=== PATIENT | male | born 2000 | race Caucasian/White ===

== ENCOUNTER 2024-02-12 15:36 | Outpatient (AMB) | payer BC, SELFPAY ==
--- NOTE | 2024-02-12 15:49 | A.OFFPC_ITS ---
Vital Signs 02/12/24 15:53 Height 5 ft 10 in Weight 167 lb 6 oz BMI 24.0 BP 117/66 Blood Pressure Location Rt brachial Position Sitting Respiration 16 Pulse 66 Pulse Source Pulse Oximeter Temp 98.4 F Temp Source Oral Pulse Oximetry (%) 97 Oxygen Delivery Method Room Air Intake Visit Reasons: Medications follow up Intake Note: asthma follow up Allergies No Known Allergies [No Known Allergies*] Allergy (Verified 02/12/24 15:52) Medication List - Last Reconciled 02/12/24 by Jordon Miles MD albuterol sulfate 90 mcg/actuation 2 puffs inhalation Q4-6H PRN 30 days fluticasone propion-salmeterol 250-50 mcg/dose (Advair Diskus) 1 inh inhalation Q12H 30 days Tobacco use date assessed: 12/27/21 HPI Medications follow up HPI Details 23 y/o male presents to f/u meds, chroni c conditions. Requesting refills for his asthma meds. [facility] Social History Housing: House Patient Tobacco Use Status: Never used Tobacco Current occupational status: employed Questionnaire PHQ-9 Over the last 2 weeks, how often have you been bothered by any of the following problems? 1. Little interest or pleasure in doing things: several days 2. Feeling down, depressed, or hopeless: several days 3. Trouble falling or staying asleep, or sleeping too much: several days 4. Feeling tired or having little energy: several days 5. Poor appetite or overeating: several days 6. Feeling bad about yourself - or that you are a failure or have let yourself or your family down: several days 7. Trouble concentrating on things, such as reading the newspaper or watching television: not at all 8. Moving or speaking so slowly that other people could have noticed. Or the opposite - being so fidgety or restless that you have been moving around a lot more than usual: not at all 9. Thoughts that you would be better off or of hurting yourself in some way: not at all Total score: 6 Source: Developed by Drs. Bennett Romero, Floridalma Hastings, Darshan Lang and colleagues, with an educational lenore from [employer]. Thrive Questionnaire I am a: Patient What is your living situation today?: I have a steady place to live Within the past 12 months, did the food you bought not last and you didn't have the money to get more?: Never true Within the past 12 months, did you worry whether your food would run out before you got money to buy more?: Never true Do you have trouble paying for medicines?: No Do you have trouble getting transportation to medical appointments?: No Do you have trouble paying your heating and electricity bill?: No Do you have trouble taking care of your child, family member or friend?: No Do you have trouble with day-to-day activities such as bathing, preparing meals, shopping, managing finances, etc.?: No Are you currently unemployed and looking for a job?: No Are you interested in more education?: Yes Please select the resources that you would like help with: None Currently or been in a relationship where the following occur: No concerns reported THRIVE Score: 0 AUDIT C Alcohol Use Questionnaire (AUDIT-C) 1. How often do you have a drink containing alcohol?: 2-3 times a week 2. How many drinks containing alcohol do you have on a typical day when you are drinking?: 3 or 4 3. How often do you have six or more drinks on one occasion?: Monthly Total Score: 6 ERNESTO-7 AMB Questionnaire ERNESTO-7 Feeling nervous, anxious, or on edge: 1 = Several days Not being able to stop or control worryin = Several days Worrying too much about different things: 1 = Several days Trouble relaxin = Several days Being so restless that it is hard to sit still: 0 = Not at all Becoming easily annoyed or irritable: 1 = Several days Feeling afraid as if something awful might happen: 1 = Several days Total ERNESTO-7 score (0-4 normal; 5-9 mild; 10-14 moderate; 15-21 severe): 6 Source: Developed by Drs. Bennett Romero, Floridalma Hastings, Darshan Lang and colleagues, with an educational lenore from [employer]. ACT Questionnaire In the past 4 weeks, how much of the time did your asthma keep you from getting as much done at work, school or at home?: None of the time During the past 4 weeks, how often have you had shortness of breath?: 1-2 times a week During the past 4 weeks, how often did your asthma symptoms wake you up at night or earlier than usual in the morning?: Not at all During the past 4 weeks, how often have you had to use your rescue inhaler or nebulizer medication?: 2-3 times a week How would you rate your asthma control during the past 4 weeks?: Somewhat controlled ACT Interpretation: Positive Score: 20 Review of Systems Const Denies chills, Denies fatigue, Denies fever(s), Denies headache(s) and Denies weakness ENT Denies dizziness and Denies headache(s) Card Denies dyspnea Resp Denies cough, Denies dyspnea, Denies wheezing and Denies other (shortness of breath) Musc Denies numbness and Denies tingling Neuro Denies dizziness, Denies headache(s), Denies numbness, Denies tingling and Denies weakness Psych Denies anxiety and Denies depression Endo Denies fatigue Aller/Immun Denies wheezing Physical exam (Primary Care) Vital Signs: Last Vital Signs Temp 98.4 F 02/12/24 15:53 Pulse 66 02/12/24 15:53 Resp 16 02/12/24 15:53 BP 117/66 02/12/24 15:53 Pulse Ox 97 02/12/24 15:53 Oxygen Delivery Method Room Air 02/12/24 15:53 BMI result Body Mass Index 24.0 Tobacco/Smoking Status: Tobacco use Status Tobacco use date assessed 12/27/21 02/12/24 15:57 Patient Tobacco Use Status Never used Tobacco 02/12/24 15:57 PHQ-9: PHQ-9 Score PHQ-9: Total score 6 02/12/24 15:57 Currently or been in a relationship where the following occur: No concerns reported Const General: well developed; No acute distress Nutritional Appearance: well nourished Orientation/consciousness: [facility]: Yes normocephalic and Yes atraumatic Eyes General: appearance normal, both eyes and all related structures Pupils: Equal, round and reactive pupils present EOM: EOMs intact bilaterally Resp Effort & Inspection: normal respiratory effort Auscultation: clear to auscultation bilaterally Cardio Rate: regular rate Rhythm: regular rhythm Heart sounds: S1 normal heart sound present, S2 normal heart sound present, no gallops, no murmurs and no rubs Neuro General: patient oriented x3 and gait normal Cranial nerves: Yes Equal, round and reactive pupils present Psych Affect: normal affect Coding Level of Care Code Est Pt Level 3 (55605) Diagnoses Asthma J45.909 Additional Codes Asthma Control Questionnaire - ACT Interpretation: Positive ([id number]) Assessment & Plan Assessment & Plan (1) Asthma: Code(s): J45.909 - Unspecified asthma, uncomplicated Category: Medical Plan: Well?controlled?when?patient?has?his?medications. Lungs?are?clear Refilled?meds Continue?current?medication?regimen Orders: Orders TSH reflex Free T4 Today Z00.00 - Encounter for general adult medical examination without abnormal findings Comprehensive Midnight. Panel Fast Today Z00.00 - Encounter for general adult medical examination without abnormal findings Lipid Panel Today Z00.00 - Encounter for general adult medical examination without abnormal findings Microalbumin, Random (w Creat) Today I10 - Essential (primary) hypertension UA and rflx microscopic Today Z00.00 - Encounter for general adult medical examination without abnormal findings Medications: New fluticasone propion-salmeterol 500-50 mcg/dose (Wixela Inhub) 1 inh inhalation Q12H 30 days 60 ea 4RF fluticasone propion-salmeterol 250-50 mcg/dose (Wixela Inhub) 1 inh inhalation Q12H 30 days 60 ea 4RF Refilled albuterol sulfate 90 mcg/actuation 2 puffs inhalation Q4-6H 30 days PRN 8.5 grams 4RF shortness of breath or wheezing Discontinued fluticasone propion-salmeterol 250-50 mcg/dose (Advair Diskus) Discontinued Reason: Doctor's Order 1 inh inhalation Q12H 30 days 60 ea 0RF
[2024-02-12 15:53] VITALS: BP 117/66; PULSE 66; RESP 16; TEMP 36.9; O2SAT 97; BMI 24.0
== END 2024-02-12 16:21 | disposition home or self-care (01) ==
PROVIDERS: PCP Family Medicine; Visit Provider Family Medicine
DX: J45.909 Unspecified asthma, uncomplicated (principal)

== ENCOUNTER → 2024-02-12 15:36 | Outpatient (BNVA) | payer BC, SELFPAY | PROVIDERS: PCP Family Medicine; Visit Provider Family Medicine | DX: J45.909 Unspecified asthma, uncomplicated (principal) | CPT/HCPCS: 96127; 96160 ==

== ENCOUNTER 2024-03-12 12:52 | Outpatient (REF) | payer BC, SELFPAY ==
--- OUTSIDE RECORDS SUMMARY | 2024-03-12 14:30 | XMS_ITS | Clinical Summary ---
Author Organization [facility] Address [address] [place] [address] Phone Care Team Providers Care Charge Accounts Audit Clerk Name Role Phone Unavailable Primary Care Provider Unavailabl e Allergies No known active allergies Medications albuterol HFA 108 (90 BASE) MCG/ACT inhalerIndication s:Moderate persistent asthma with acute exacerbation Inhale 4 puffs every 4 (four) hours as needed for wheezing or shortness of breath. 1 Units 1 7 Active Spacer/Aero-Holdi ng Chambers (OPTICHAMBER ADVANTAGE) miscIndications:M oderate persistent asthma without complication Use with inhaler 1 each 1 7 Active TRETINOIN 0.05 % creamIndications: Acne, unspecified acne type APPLY TOPICALLY TO THE AFFECTED AREA ONCE DAILY 20 g 6 8 Active cefuroxime 250 MG tablet 0 8 Active clindamycin-benzo yl peroxide 1-5% gel 0 8 Active Advair Diskus 100-50 MCG/DOSE diskus inhalerIndication s:Moderate persistent asthma without complication INHALE 1 PUFF BY MOUTH TWICE DAILY. RINSE MOUTH AFTER USE 1 Units 0 Active Active Problems Problem Noted Date Diagnosed Date Moderate persistent asthma with acute exacerbati on 10/29/2016 Overview (10/29/2016): Hospitalized in PICU at age 5 Takes Advair Disc BID Acne vulgaris 10/11/2016 Immunizations Name Administration Dates Next Due DTaP 5 02/27/2003, 1,1999,07/19,1999 HPV Vaccine 9 Valent 09/16/2014 HPV, Quadrivalent 03/19/2014,08/27/2013 Hep A, ped/adol 08/27/2013,08/12/2010 Hep B, ped/adol 1999,1999,1999 Hib (PRP-T) 06/20/2000, 0,1999,05/11 IPV 02/27/2003, 0,1999,05/11 Influenza, injectable, quadrivalent 03/19/2014 Influenza, injectable, quadr ivalent, preservative free 10/13/2015 Influenza, injectable, trivalent 01/15/2008,11/21 Influenza, intranasal, trivalent 03/05/2012 MMR 02/27/2003,03/21/2000 Meningococcal Conj (Menactra) MCV4P 10/11/2016,0 08/05/2011 Pneumococcal Conjugate 06/20/2000,03/21/2000, Tdap 08/05/2011 Varicella 03/05/2008,03/21/2000 Family History Relation Name Status Comments Mother Joseline Alive Other Family history of Obesity, Family history of Asthma, Family history of *CVA/Stroke, Family history of Sudden /[place] under 55, Family history of *Heart Disease, Family history of Diabetes mellitus, Family history of Developmental dislocation of hip, Family history of *Dental caries Sister Deepa Alive Social History Tobacco Use Types Packs/Day Years Used Date Smoking Tobacco: Never Smokeless Tobacco: Never Alcohol Use Standard Drinks/Week Comments Yes 3 (1 standard drink = 0.6 oz pur e alcohol) Sex and Gender Information Value Date Recorded Sex Assigned at Not on file Legal Sex Male 4:57 PM EDT Gender Identity Not on file Sexual Orientation Not on file Last Filed Vital Signs Vital Sign Reading Time Taken Comments Blood Pressure 109/75 08/30/2017 3:10 PM EDT Pulse 58 08/30/2017 3:10 PM EDT Temperature 36.8 ??C (98.2 ??F) 10/29/2016 10:44 AM E DT Respiratory Rate - - Oxygen Saturation 99% 10/29/2016 10:44 AM EDT pr Inhaled Oxygen Concentration - - Weight 72.8 kg (160 lb 6.4 oz) 08/30/2017 3:10 P M EDT Height 177.2 cm (5' 9.75 ) 08/30/2017 3:10 PM ED T Body Mass Index 23.18 08/30/2017 3:10 PM EDT Plan of Treatment Health Maintenance Due Date Last Done Comments Consider Men B Vaccine (1 of 2 - Bexsero 2-dose series) 2015 Influenza Vaccines (#1) 2023 10/13/19 16, 03/19/2014, 03/05/2012, Additional history exists COVID-19 Vaccine ( season) 2023 06/13/2020, 05/16/2020 DTaP,Tdap,and Td Vaccines (8 - Td or Tdap) 11/07/2027 11/06/2017, 08/05/2011, 02/27/2003, Additional history exists Hepatitis B Vaccines Completed 1999, 1999, 1999 HIB Vaccines Completed 06/20/2000, 08/20, 1999, Additional history exists Pneumococcal Vaccine Completed 06/20/2000, 03/21/2000, 1999 IPV Vaccines Completed 02/27/2003, 08/20, 1999, Additional history exists MMR Vaccines Completed 02/27/2003, 03/21/2000 Varicella Vaccines Completed 03/05/2008, 03/21/2000 Hepatitis A Vaccines Completed 08/27/2013, 08/13/19 11 HPV Vaccines Completed 09/16/2014, 02/21, 08/27/2013 Meningococcal Vaccine Completed 10/11/2016, 012 Men B Vaccine Aged Out No longer randall moore based on patient's age to complete this topic
--- OUTSIDE RECORDS SUMMARY | 2024-03-12 14:30 | XMS_ITS | Encounter Summary ---
Author Organization [facility] Address [address] [place] [address] Phone Care Team Providers Care Language Path Name Role Phone Provider, Nithya SAHA Primary Care Provider [phone] Reason for Visit * Reason Comments Med Refill Encounter Details Date Type Department Care Team (Late st Contact Info) Description 10/31/2019 Refill [facility] [place] [address] [place] [address] Hannah Renteria MD [address] [place] [address] Moderate persistent asthma without complication Social History Tobacco Use Types Packs/Day Years Used Date Smoking Tobacco: Never Smokeless Tobacco: Never Alcohol Use Standard Drinks/Week Comments Yes 3 (1 standard drink = 0.6 oz pur e alcohol) Sex and Gender Information Value Date Recorded Sex Assigned at Not on file Legal Sex Male 4:57 PM EDT Gender Identity Not on file Sexual Orientation Not on file documented as of this encounter Miscellaneous Notes * Telephone Encounter - Hannah Renteria MD - 10/31/2019 5:40 PM EDT Needs well visit scheduled. * Telephone Encounter - Citlaly Atwood LPN - 10/31/2019 7:56 AM EDT Refill request for Advair Diskus/JOD documented in this encounter Plan of Treatment Not on file documented as of this encounter Visit Diagnoses Diagnosis Moderate persistent asthma without complication documented in this encounter Care Teams Language Path Relationship Specialty Start Date End Date Provider, MD Nithya [address] [place] [address] PCP - General Pediatrics 10/01/20 05/30/22 documented as of this encounter
--- OUTSIDE RECORDS SUMMARY | 2024-03-12 14:30 | XMS_ITS | Encounter Summary ---
Author Organization [facility] Address [address] [place] [address] Phone Care Team Providers Care Hot Roller Name Role Phone ProviderNithya MD Primary Care Provider [phone] Encounter Details Date Type Department Care Team (Late st Contact Info) Description 08/11/2015 Documentation [facility] [place] [address] [place] [address] Family Medicine, Physician [address] [place] [address] Social History Tobacco Use Types Packs/Day Years Used Date Smoking Tobacco: Never Assessed Sex and Gender Information Value Date Recorded Sex Assigned at Not on file Legal Sex Male 4:57 PM EDT Gender Identity Not on file Sexual Orientation Not on file documented as of this encounter Plan of Treatment Not on file documented as of this encounter Visit Diagnoses Not on filedocumented in this encounter Care Teams Hot Roller Relationship Specialty Start Date End Date Provider, MD Nithya [address] [place] [address] PCP - General Pediatrics 10/01/20 05/30/22 documented as of this encounter
--- OUTSIDE RECORDS SUMMARY | 2024-03-12 14:30 | XMS_ITS | Encounter Summary ---
Author Organization [facility] Address [address] [place] [address] Phone Care Team Providers Care Process Safety Manager Name Role Phone ProviderNithya MD Primary Care Provider [phone] Encounter Details Date Type Department Care Team (Late st Contact Info) Description 04/25/2016 Documentation [facility] [place] [address] [place] [address] Family Medicine, Physician [address] [place] [address] Social History Tobacco Use Types [...] on filedocumented in this encounter Care Teams Process Safety Manager Relationship Specialty Start Date End Date Provider, MD Nithya [address] [place] [address] PCP - General Pediatrics 10/01/20 05/30/22 documented as of this encounter
--- OUTSIDE RECORDS SUMMARY | 2024-03-12 14:30 | XMS_ITS | Encounter Summary ---
Author Organization [facility] Address [address] [place] [address] Phone Care Team Providers Care Director Of Annual Giving Name Role Phone ProviderNithya MD Primary Care Provider [phone] Encounter Details Date Type Department Care Team (Late st Contact Info) Description 04/01/2013 Documentation [facility] [place] [address] [place] [address] Family Medicine, Physician [address] [place] [address] Social History Tobacco Use Types [...] on filedocumented in this encounter Care Teams Director Of Annual Giving Relationship Specialty Start Date End Date Provider, MD Nithya [address] [place] [address] PCP - General Pediatrics 10/01/20 05/30/22 documented as of this encounter
--- OUTSIDE RECORDS SUMMARY | 2024-03-12 14:30 | XMS_ITS | Encounter Summary ---
Author Organization [facility] Address [address] [place] [address] Phone Care Team Providers Care Welder Boilermaker Name Role Phone Provider, Nithya SAHA Primary Care Provider [phone] Encounter Details Date Type Department Care Team (Late st Contact Info) Description 10/06/2016 Conversion Encounter [facility] [place] [address] [place] [address] Social History Tobacco Use Types Packs/Day Years [...] on filedocumented in this encounter Care Teams Welder Boilermaker Relationship Specialty Start Date End Date Provider, MD Nithya [address] [place] [id number] PCP - General Pediatrics 10/01/20 05/30/22 documented as of this encounter
--- OUTSIDE RECORDS SUMMARY | 2024-03-12 14:31 | XMS_ITS | Encounter Summary ---
Author Organization [facility] Address [address] [place] [address] Phone Care Team Providers Care Sugar Drier Name Role Phone ProviderNithya MD Primary Care Provider Encounter Details Date Type Department Care Team (Late st Contact Info) Description 05/06/2009 Documentation [facility] [place] [address] [place] [address] Family Medicine, Physician [address] [place] [address] Social History Tobacco Use Types [...] on filedocumented in this encounter Care Teams Sugar Drier Relationship Specialty Start Date End Date Provider, MD Nithya [address] [place] [address] PCP - General Pediatrics 10/01/20 05/30/22 documented as of this encounter
--- OUTSIDE RECORDS SUMMARY | 2024-03-12 14:31 | XMS_ITS | Encounter Summary ---
Author Organization [facility] Address [address] [place] [address] Phone Care Team Providers Care Physician Interventional Cardiologist Name Role Phone ProviderNithya MD Primary Care Provider [phone] Encounter Details Date Type Department Care Team (Late st Contact Info) Description 05/06/2009 Documentation [facility] [place] [address] [place] [address] Family Medicine, Physician [address] [place] [address] Social History Tobacco Use Types [...] on filedocumented in this encounter Care Teams Physician Interventional Cardiologist Relationship Specialty Start Date End Date Provider, MD Nithya [address] [place] [address] PCP - General Pediatrics 10/01/20 05/30/22 documented as of this encounter
--- OUTSIDE RECORDS SUMMARY | 2024-03-12 14:31 | XMS_ITS | Encounter Summary ---
Author Organization [facility] Address [address] [place] [address] Phone Care Team Providers Care Director Product Development Name Role Phone ProviderNithya MD Primary Care Provider [phone] Encounter Details Date Type Department Care Team (Late st Contact Info) Description 01/30/2013 Documentation [facility] [place] [address] [place] [address] Family Medicine, Physician [address] [place] [address] Social History Tobacco Use Types [...] filedocumented in this encounter Care Teams Director Product Development Relationship Specialty Start Date End Date Provider, MD Nithya [address] [place] [address] PCP - General Pediatrics 10/01/20 05/30/22 documented as of this encounter
--- OUTSIDE RECORDS SUMMARY | 2024-03-12 14:31 | XMS_ITS | Encounter Summary ---
Author Organization [facility] Address [address] [place] [address] Phone Care Team Providers Care Linen Room Worker Name Role Phone ProviderNithya MD Primary Care Provider [phone] Encounter Details Date Type Department Care Team (Late st Contact Info) Description 09/08/2009 [place]ation [facility] [place] [address] [place] [address] Family Medicine, Physician [address] [place] [address] Social History Tobacco Use Types [...] on filedocumented in this encounter Care Teams Linen Room Worker Relationship Specialty Start Date End Date Provider, MD Nithya [address] [place] [address] PCP - General Pediatrics 10/01/20 05/30/22 documented as of this encounter
--- OUTSIDE RECORDS SUMMARY | 2024-03-12 14:31 | XMS_ITS | Encounter Summary ---
Author Organization [facility] Address [address] [place] [address] Phone Care Team Providers Care Director Of Logistics Name Role Phone ProviderNithya MD Primary Care Provider [phone] Encounter Details Date Type Department Care Team (Late st Contact Info) Description 10/03/2012 Documentation [facility] [place] [address] [place] [address] Family Medicine, Physician [address] [place] [address] Social History Tobacco Use Types [...] in this encounter Care Teams Director Of Logistics Relationship Specialty Start Date End Date Provider, MD Nithya [address] [place] [address] PCP - General Pediatrics 10/01/20 05/30/22 documented as of this encounter
--- OUTSIDE RECORDS SUMMARY | 2024-03-12 14:31 | XMS_ITS | Encounter Summary ---
Author Organization [facility] Address [address] [place] [address] Phone Care Team Providers Care Furniture And Bedding Inspector Name Role Phone ProviderNithya MD Primary Care Provider [phone] Encounter Details Date Type Department Care Team (Late st Contact Info) Description 05/06/2009 Documentation [facility] [place] [address] [place] [address] Family Medicine, Physician [address] [place] [address] Social History Tobacco Use Types [...] on filedocumented in this encounter Care Teams Furniture And Bedding Inspector Relationship Specialty Start Date End Date Provider, MD Nithya [address] [place] [address] PCP - General Pediatrics 10/01/20 05/30/22 documented as of this encounter
--- OUTSIDE RECORDS SUMMARY | 2024-03-12 14:31 | XMS_ITS | Encounter Summary ---
Author Organization [facility] Address [address] [place] [address] Phone Care Team Providers Care Secondary Connector Armature Name Role Phone ProviderNithya MD Primary Care Provider [phone] Encounter Details Date Type Department Care Team (Late st Contact Info) Description 03/26/2013 Documentation [facility] [place] [address] [place] [address] Family Medicine, Physician [address] [place] [address] Social History Tobacco Use Types [...] on filedocumented in this encounter Care Teams Secondary Connector Armature Relationship Specialty Start Date End Date Provider, MD Nithya [address] [place] [address] PCP - General Pediatrics 10/01/20 05/30/22 documented as of this encounter
[2024-03-12 14:43] LABS: Appearance Urine Clear; Color Urine Yellow; Glucose Urine UA Negative (Negative); Leukocyte Esterase Urine Negative (Negative); Nitrite Urine Negative (Negative); PH 7.5 (5.0-9.0); Urine Blood Negative (Negative); Urine Ketones Negative (Negative); Urine Protein Negative (Neg-Trace)
[2024-03-12 15:14] LABS: Alanine Aminotransferase 17 U/L (0-40); Albumin Level 4.5 g/dL (3.5-5.0); Alkaline Phosphatase 55 U/L (39-117); Anion Gap 9 (12-20); Aspartate Amino Transferase 22 U/L (5-37); Bilirubin Total 0.6 mg/dL (0.0-1.0); Blood Urea Nitrogen 10 mg/dL (9-16); Calcium 9.1 mg/dL (8.4-10.2); Carbon Dioxide 29 mmol/L (22-29); Chloride 107 mmol/L (96-108); Cholesterol 146 mg/dL (<200); Estimated Glomerular Filt Rate > 60; Glucose Fasting 92 mg/dL (60-99); HDL Cholesterol 63 mg/dL (>40); LDL Cholesterol Calculated 74 mg/dL (<100); Potassium 4.1 mmol/L (3.3-5.1); Sodium 141 mmol/L (135-145); Total Protein 7.5 g/dL (6.5-8.0); Triglycerides 46 mg/dL (<150)
[2024-03-12 15:26] LABS: Creatinine Urine 140.49 mg/dL; Microalbum/Creatinine Ratio Ur 4.2 ug/mg cr (<30)
[2024-03-12 15:30] LABS: TSH reflex Free T4 1.15 uIU/mL (0.32-4.0)
== END 2024-03-12 12:53 | disposition home or self-care (01) ==
LOC: HO.WFDLDS 12:52
PROVIDERS: Visit Provider Family Medicine
DX: Z00.00 Encounter for general adult medical examination without abnormal findings (principal); I10 Essential (primary) hypertension
CPT/HCPCS: 36415; 80053; 80061; 81003; 82043; 82570; 84443

== ENCOUNTER → 2024-03-19 14:25 | Outpatient (BNVA) | payer BC, SELFPAY | PROVIDERS: PCP Family Medicine; Visit Provider Family Medicine ==

== ENCOUNTER 2024-05-20 08:53 | Outpatient (AMB) | payer BC, SELFPAY ==
--- NOTE | 2024-05-20 09:02 | A.OFFPC_ITS ---
Vital Signs 05/20/24 09:06 Height 5 ft 10 in Weight 163 lb 6 oz BMI 23.4 BP 110/70 Blood Pressure Location Lt brachial Position Sitting Respiration 12 Pulse 65 Pulse Source Pulse Oximeter Temp 98.4 F Temp Source Oral Pulse Oximetry (%) 100 Oxygen Delivery Method Room Air Intake Visit Reasons: Annual Physical Intake Note: patient is scheduled for annual physical Mental Health Director Required: No Allergies No Known Allergies [No Known Allergies*] Allergy (Verified 05/20/24 09:04) Medication List - Last Reconciled 05/20/24 by Jordon Miles MD albuterol sulfate 90 mcg/actuation 2 puffs inhalation Q4-6H PRN 30 days fluticasone propion-salmeterol 250-50 mcg/dose (Wixela Inhub) 1 inh inhalation Q12H 30 days fluticasone propion-salmeterol 500-50 mcg/dose (Wixela Inhub) 1 inh inhalation Q12H 30 days Tobacco use date assessed: 05/20/24 Dental Screening Dental Screen Date: 05/20/24 Did you have a dental visit in the last 12 months?: No Did you have a dental problem in the last 6 months where you did not have access to dental care?: No Was dental information given to patient?: No HPI Annual Physical HPI Details 24 y/o male presents for a CPE with f/u labs and health maintenance. Labs are fine. 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 1. Little interest or pleasure in doing things: not at all 2. Feeling down, depressed, or hopeless: not at all 3. Trouble falling or staying asleep, or sleeping too much: several days 4. Feeling tired or having little energy: several days 5. Poor appetite or overeating: several days 6. Feeling bad about yourself - or that you are a failure or have let yourself or your family down: not at all 7. Trouble concentrating on things, such as reading the newspaper or watching television: not at all 8. Moving or speaking so slowly that other people could have noticed. Or the opposite - being so fidgety or restless that you have been moving around a lot more than usual: not at all 9. Thoughts that you would be better off or of hurting yourself in some way: not at all Total score: 3 Depression Screening Interpretation: Negative Depression Screening Done: Yes 09867 - PHQ-9 Billing: Yes Source: Developed by Drs. Bennett Romero, Floridalma Hastings, Darshan Lang and colleagues, with an educational lenore from [employer]. Thrive Questionnaire Date Thrive assessed: 05/20/24 I am a: Patient What is your living situation today?: I have a steady place to live Within the past 12 months, did the food you bought not last and you didn't have the money to get more?: Never true Within the past 12 months, did you worry whether your food would run out before you got money to buy more?: Never true Do you have trouble paying for medicines?: No Do you have trouble getting transportation to medical appointments?: No Do you have trouble paying your heating and electricity bill?: No Do you have trouble taking care of your child, family member or friend?: No Do you have trouble with day-to-day activities such as bathing, preparing meals, shopping, managing finances, etc.?: No Are you currently unemployed and looking for a job?: No Are you interested in more education?: No Please select the resources that you would like help with: None Currently or been in a relationship where the following occur: No concerns reported THRIVE Score: 0 AUDIT C Alcohol Use Questionnaire (AUDIT-C) 1. How often do you have a drink containing alcohol?: 2-3 times a week 2. How many drinks containing alcohol do you have on a typical day when you are drinking?: 3 or 4 3. How often do you have six or more drinks on one occasion?: Monthly Total Score: 6 Score Reviewed/Action Taken: Yes ERNESTO-7 AMB Questionnaire ERNESTO-7 Date ERNESTO - 7 assessed: 05/20/24 Feeling nervous, anxious, or on edge: 0 = Not at all Not being able to stop or control worryin = Not at all Worrying too much about different things: 0 = Not at all Trouble relaxin = Not at all Being so restless that it is hard to sit still: 0 = Not at all Becoming easily annoyed or irritable: 0 = Not at all Feeling afraid as if something awful might happen: 0 = Not at all Total ERNESTO-7 score (0-4 normal; 5-9 mild; 10-14 moderate; 15-21 severe): 0 Source: Developed by Drs. Bennett Romero, Floridalma Hastings, Darshan Lang and colleagues, with an educational lenore from [employer]. ERNESTO-7 Assessment Billing ERNESTO-7 Assessment Tool: ERNESTO-7 Assessment 62857 Review of Systems Const Denies chills, Denies fatigue, Denies fever(s), Denies headache(s) and Denies weakness Eyes Denies change in vision ENT Denies dizziness, Denies headache(s), Denies hearing loss, Denies nasal congestion, Denies sinus pain, Denies sinus pressure and Denies sore throat Card Denies chest pain, Denies lightheadedness, Denies dyspnea and Denies other (palpitations) Resp Denies cough, Denies dyspnea and Denies wheezing GI Denies abdominal pain, Denies melena, Denies hematochezia, Denies change in bowel habits, Denies dyspepsia and Denies nausea Denies hematuria and Denies dysuria Musc Denies abnormal gait, Denies myalgias, Denies arthralgias, Denies numbness and Denies tingling Skin/Breast Denies rash, Denies unusual bruising and Denies wounds Neuro Denies abnormal gait, Denies dizziness, Denies headache(s), Denies memory loss, Denies numbness, Denies Sensory deficit (Neuro), Denies tingling and Denies weakness Psych Denies anxiety, Denies depression and Denies memory loss Endo Denies cold intolerance, Denies fatigue, Denies heat intolerance, Denies polydipsia and Denies polyuria Marvin/Lymph Denies easy bleeding and Denies easy bruising Aller/Immun Denies wheezing Physical exam (Primary Care) Vital Signs: Last Vital Signs Temp 98.4 F 05/20/24 09:06 Pulse 65 05/20/24 09:06 Resp 12 05/20/24 09:06 BP 110/70 05/20/24 09:06 Pulse Ox 100 05/20/24 09:06 Oxygen Delivery Method Room Air 05/20/24 09:06 BMI result Body Mass Index 23.4 Tobacco/Smoking Status: Tobacco use Status Tobacco use date assessed 05/20/24 05/20/24 09:09 Patient Tobacco Use Status Never used Tobacco 05/20/24 09:09 e-Cigarette/Vaping Use Never Used 05/20/24 09:09 PHQ-9: PHQ-9 Score PHQ-9: Total score 3 05/20/24 09:09 Depression Screening Interpretation: Negative Thrive Assessment: Date of Thrive Assessment Date Thrive assessed 05/20/24 05/20/24 09:09 Currently or been in a relationship where the following occur: No concerns reported Const General: no acute distress, well developed, alert and awake Nutritional Appearance: well nourished Orientation/consciousness: patient oriented x3 HENMT Head: Yes normocephalic and Yes atraumatic Ears: hearing grossly normal bilaterally and TM's normal bilaterally General nose exam: Normal external nose present and Normal nares present Mouth: Normal oral and palatal mucosa present and moist mucous membranes Teeth and gingiva: dentition normal Throat: Yes posterior oropharynx normal Eyes General: appearance normal, both eyes and all related structures Pupils: Equal, round and reactive pupils present and Pupil accommodation reflex normal EOM: EOMs intact bilaterally Neck Neck: Yes normal visual inspection, Yes no lymphadenopathy and Yes trachea midline Thyroid: Thyroid normal Carotids: no bruits Lymphatic: no lymphadenopathy noted Chest Chest palpation & inspection: normal inspection of the chest Resp Effort & Inspection: normal respiratory effort Auscultation: clear to auscultation bilaterally Cardio Rate: regular rate Rhythm: regular rhythm Heart sounds: S1 normal heart sound present, S2 normal heart sound present, no gallops, no murmurs and no rubs Bruits: no abdominal aortic bruits and no carotid bruits GI Palpation (GI): No Abdominal aortic bruit present, Soft to palpation, nontender, No hepatosplenomegaly present and No Rebound tenderness present Auscultation: normal bowel sounds General: Yes no CVA tenderness Back/Spine/Pelvis Back: no CVA tenderness Cervical Spine: cervical ROM normal and No Cervical spine tenderness Thoracic/Lumbar Spine: thoraco-lumbar ROM normal, No pain with thoraco-lumbar ROM, No thoracic spinal tenderness and No lumbar spinal tenderness Skin Lesions: no lesions Rashes: no rashes Trauma: no lacerations or abrasions Wounds: no wounds Nails: normal Neuro General: patient oriented x3 Cranial nerves: Yes Equal, round and reactive pupils present Cognition (Neuro): normal cognition Gait exam (Neuro): Normal gait present Motor exam (neuro): 5/5 motor strength present throughout Sensory Exam: No Sensory deficit (Neuro) Deep tendon reflexes (DTR's): Right patellar reflex intensity grade: 2+ and Left patellar reflex intensity grade: 2+ Extrem General: Yes normal to inspection and No edema Psych Appearance: grossly normal Affect: normal affect Attitude: cooperative Thought process: Normal thought process present Coding Level of Care Code Est Pt Level 3 (32260) Est Pt Prev Care 18-39y(22838) Diagnoses Adult general medical exam Z00.00 Moderate persistent asthma J45.40 Additional Codes ERNESTO-7 Assessment Billing - ERNESTO-7 Assessment Tool: ERNESTO-7 Assessment 01808 ([id number]) PHQ-9 - 46743 - PHQ-9 Billing: Yes ([id number]) Assessment & Plan Assessment & Plan (1) Adult general medical exam: Code(s): Z00.00 - Encounter for general adult medical examination without abnormal findings Category: Medical Plan: 24-year-old?male?presents?for?complete?physical?exam Exam?within?normal?limits Continue?healthy?diet?with?active?lifestyle?and?plenty?of?exercise (2) Moderate persistent asthma: Code(s): J45.40 - Moderate persistent asthma, uncomplicated Category: Medical Plan: Asthma?well?controlled?with?Wixela?and?albuterol?needed. Continue?current?medication?regimen Orders: Orders Lipid Panel Today Z00.00 - Encounter for general adult medical examination without abnormal findings Microalbumin, Random (w Creat) Today I10 - Essential (primary) hypertension Complete Blood Count Auto Diff Today Z00.00 - Encounter for general adult medical examination without abnormal findings Comprehensive [place]. Panel Fast Today Z00.00 - Encounter for general adult medical examination without abnormal findings TSH reflex Free T4 Today Z00.00 - Encounter for general adult medical examination without abnormal findings UA CC w/rflx Micro + Cult Today Z00.00 - Encounter for general adult medical examination without abnormal findings Medications: Refilled albuterol sulfate 90 mcg/actuation 2 puffs inhalation Q4-6H 30 days PRN 8.5 grams 4RF shortness of breath or wheezing fluticasone propion-salmeterol 500-50 mcg/dose (Wixela Inhub) 1 inh inhalation Q12H 30 days 60 ea 4RF
[2024-05-20 09:06] VITALS: BP 110/70; PULSE 65; RESP 12; TEMP 36.9; O2SAT 100; BMI 23.4
== END 2024-05-20 09:28 | disposition home or self-care (01) ==
LOC: HO.HMCFM 08:53
PROVIDERS: PCP Family Medicine; Visit Provider Family Medicine
DX: Z00.00 Encounter for general adult medical examination without abnormal findings (principal); J45.40 Moderate persistent asthma, uncomplicated

== ENCOUNTER → 2024-05-20 08:53 | Outpatient (BNVA) | payer BC, SELFPAY | PROVIDERS: PCP Family Medicine; Visit Provider Family Medicine | DX: Z00.00 Encounter for general adult medical examination without abnormal findings (principal); J45.40 Moderate persistent asthma, uncomplicated | CPT/HCPCS: 96127 ==